=== PATIENT | female | born 1995 | race Caucasian/White ===

== ENCOUNTER 2018-12-26 05:33 | Day surgery (SDC) | payer OTHER ==
[2018-12-26] MEDS ORDERED: CEFAZOLIN 2 GM/50 ML (PMX) 50 ML IVPB (06:00)
[2018-12-26] MEDS ORDERED: FENTAnyl 50 MCG/ML VIAL (07:18)
[2018-12-26] MEDS ORDERED: LIDOCAINE 2% (SDV) 5 ML INJ (07:19)
[2018-12-26] MEDS ORDERED: PROPOFOL 20 ML (07:19)
[2018-12-26] MEDS ORDERED: MIDAZOLAM 1 MG/ML 2 ML INJ (07:19)
[2018-12-26] MEDS ORDERED: CEFAZOLIN 1 GM INJ (07:20)
[2018-12-26] MEDS ORDERED: ONDANSETRON 4 MG INJ (07:20)
[2018-12-26] MEDS ORDERED: DEXAMETHASONE 4 MG/ML 5 ML INJ (07:20)
[2018-12-26] MEDS ORDERED: METOCLOPRAMIDE 10 MG INJ (07:20)
[2018-12-26] MEDS ORDERED: LEVALBUTEROL (NEB) 1.25 MG/0.5 ML AMP HHN (07:30)
[2018-12-26] MEDS ORDERED: HYDROmorphONE 1 MG/5 ML IV SYRINGE IV ×2 (07:30)
[2018-12-26] MEDS ORDERED: MEPERIDINE 25 MG INJ IV (07:30)
[2018-12-26] MEDS ORDERED: FENTAnyl 50 MCG/ML VIAL IV ×2 (07:30)
[2018-12-26] MEDS ORDERED: MIDAZOLAM 1 MG/ML 2 ML INJ IV (07:30)
[2018-12-26] MEDS ORDERED: KETOROLAC 30 MG INJ IV (07:30)
[2018-12-26] MEDS ORDERED: ONDANSETRON 4 MG INJ IV (07:30)
[2018-12-26] MEDS ORDERED: DIPHENHYDRAMINE 50 MG INJ IV (07:30)
[2018-12-26] MEDS: LIDOCAINE 1% (MPF) 30 ML INJ (07:56)
[2018-12-26] MEDS ORDERED: KETOROLAC 30 MG INJ IM (08:19)
== END 2018-12-26 09:41 | disposition home or self-care (01) ==
LOC: SDS 05:33
DX: N84.3 Polyp of vulva (principal)
CPT/HCPCS: 57135; 88307; 93005